=== PATIENT | male | born 1995 | race Two or more races ===

== ENCOUNTER 2018-09-07 16:55 | Emergency (ER) | payer SELFPAY ==
[~2018-09-07] VITALS: Ht 170.2 cm; Wt 59.0 kg
[2018-09-07 17:18] VITALS: Ht 170.2 cm; Wt 59.0 kg
[2018-09-07 18:28] LABS: BASOPHIL % 0.2 % (0-2); PLATELET COUNT 224 x10^3mcL (130-400); RED CELL DISTRIBUTION WIDTH 12.9 % (11.5-14.5)
[2018-09-07 18:42] LABS: CALCIUM 9.2 mg/dL (8.5-10.1); CARBON DIOXIDE 22.1 mmol/L (21-32); CHLORIDE SERUM 106 mmol/L (98-107); CREATININE SERUM 0.8 mg/dL (0.7-1.3); GFR1 > 60 mL/min; GLUCOSE SERUM 96 mg/dL (74-106); POTASSIUM SERUM 3.6 mmol/L (3.5-5.1); SODIUM SERUM 141 mmol/L (136-145)
[2018-09-07 18:49] LABS: ALBUMIN 4.6 g/dL (3.4-5.0); ALKALINE PHOSPHATASE 67 U/L (46-116); ALT/SGPT 19 U/L (16-63); AST/SGOT 15 U/L (15-37); BILIRUBIN TOTAL 0.6 mg/dL (0.20-1.00); T4(THYROXINE) 6.8 ug/dL (4.7-13.3); TOTAL PROTEIN, SERUM 7.6 g/dL (6.4-8.2)
[2018-09-07 18:51] LABS: AMPHETAMINE QUAL UR NONE DETECTED (See below)
[2018-09-07 21:34] VITALS: BP 127/74
== END 2018-09-07 21:34 | disposition home or self-care (01) ==
LOC: ED 16:55
PROVIDERS: Emergency Medicine
DX: F40.10 Social phobia, unspecified (principal); F84.0 Autistic disorder
CPT/HCPCS: 36415; G0480